=== PATIENT | female | born 1985 | race African-American/Black ===

== ENCOUNTER → 2019-07-16 | Day surgery (SDC) | payer OTHER | LOC: JPSTO 13:27 | DX: N87.1 Moderate cervical dysplasia (principal) ==

== ENCOUNTER 2019-07-23 05:12 | Day surgery (SDC) | payer OTHER ==
[2019-07-16 14:35] VITALS: BMI 42.0
[2019-07-23] MEDS ORDERED: LIDOCAINE HCL/PF 2% SDV 5ML VIAL ONE ×2 (09:00→10:13)
[2019-07-23] MEDS ORDERED: PROPOFOL 20 ML ONE (09:00)
[2019-07-23] MEDS ORDERED: MIDAZOLAM HCL 2 MG/2 ML SINGLE DOSE VIAL ONE ×2 (09:00→10:12)
--- NOTE | 2019-07-23 09:19 | HP ---
History & Physical Update - History History: No Change (HGSIL, IUD in place) - Physical Physical: No Change - Assessment Assessment: No Change - Plan Plan: No Change (LEEP, possible removal of IUD)
[2019-07-23] MEDS ORDERED: KETOROLAC TROMETHAMINE 30 MG/1 ML VIAL ONE (10:05)
[2019-07-23] MEDS ORDERED: SUCCINYLCHOLINE CHLORIDE 200 MG/10 ML SYRINGE ONE (10:14)
--- NOTE | 2019-07-23 10:17 | OP ---
Operative Note - Note: Operative Date: 07/23/19 Pre-Operative Diagnosis: Cervical HGSIL/EMILIA 2 Operation: LEEP, ECC Findings: 1. Pt with known IUD in place. No IUD string was seen at cervical os. An IUD hook was used to retrieve the string. 2. Colposcopy did not show dysplasia. Lugol's solution was used. Post-Operative Diagnosis: Same as Pre-op Surgeon: Narendra Johnson Anesthesiologist/END FINDER FORMING DEPARTMENT: Gregory Crespo Anesthesia: General Specimens Removed: LEEP (fragments from 4 quadrants), ECC Estimated Blood Loss (mls): 2 Blood Volume Replaced (mls): 0 Fluid Volume Replaced (mls): 500 Operative Report Dictated: Yes
[2019-07-23] MEDS ORDERED: ONDANSETRON 4 MG/2 ML VIAL IVPUSH PRN (11:12)
[2019-07-23] MEDS ORDERED: oxyCODONE HCL 5 MG TABLET PO PRN ×2 (11:12)
[2019-07-23] MEDS ORDERED: LACTATED RINGERS SOLUTION 1,000 ML IV SCH (11:15)
[2019-07-23 12:18] VITALS: BP 111/74; PULSE 84; TEMP 98.4
--- NOTE | 2019-07-23 12:55 | OP ---
DATE OF OPERATION: 07/23/2019 PREOPERATIVE DIAGNOSIS: Cervical high-grade squamous intraepithelial lesion, cervical intraepithelial neoplasia 2. POSTOPERATIVE DIAGNOSIS: Cervical high-grade squamous intraepithelial lesion, cervical intraepithelial neoplasia 2. PROCEDURES: Loop electrocautery excision procedure and endocervical curettage. SURGEON: Narendra Johnson MD CMO & PRESIDENT: None. ANESTHESIOLOGIST: Gregory Crespo MD ANESTHESIA: General. COMPLICATIONS: None. INTRAVENOUS FLUIDS: 500 mL. ESTIMATED BLOOD LOSS: 2 mL PATHOLOGY: LEEP with 4 fragments originating from 4 quadrants of the cervix and endocervical curettage. FINDINGS: Examination under anesthesia showed a normal vagina and cervix. The cervix was noted to have a small, nulliparous cervical os. There was no IUD string noted. The colposcopy was performed using acetic acid and Lugol solution. No dysplasia was noted. The attempt to retrieve the IUD string was successful, and the string was retrieved from the endocervical canal prior to the beginning of the procedure. LEEP was performed in 4 quadrants of the cervix without complication and with good hemostasis. DESCRIPTION OF PROCEDURE: The patient was met preoperatively. Risks, benefits, and alternatives of surgery were discussed. We also discussed that the patient has a known IUD in place, and I explained that if the IUD string was cut during the surgery, and attempt will be made to remove the IUD. The patient agreed, however. She expressed her preference to try and preserve the IUD in situ as much as possible with the understanding that if the IUD string is cut the IUD should be removed to avoid a future hysteroscopy to remove the device. The risks of surgery were also reviewed including, but not limited to, infection, bleeding, scarring, cervical stenosis, amenorrhea, infertility, future reproductive risks such as labor and delivery, cervical incompetence, etc. The patient verbalized her understanding. We reviewed the consent form. The consent form was signed. The patient requested to proceed with the surgery. The patient was brought to the OR with the IV running. She was placed on the surgical table in the supine position. The general anesthesia was achieved without difficulty. The patient was then placed in a dorsal lithotomy position using adjustable Kamari stirrups. The patient was prepped and draped in the usual sterile fashion. A time-out procedure was conducted per standard protocol. A sterile coated speculum was then introduced inside the vagina. The colposcopy was performed using acetic acid solution as well as Lugol. There was no sign of dysplasia noted. The vaginal canal and vagina fornices were normal. The cervix was normal. There was no IUD string noted at the cervical os or within the distal cervical canal. At that point, the decision was made to attempt and retrieve the IUD string because it was unclear if the IUD string folded deeper within the cervical canal and would be accidentally cut due to uncertainty of the string position. An IUD hook was then used to successful retrieve the IUD string. Once the IUD string was retrieved, a LEEP procedure was done in a very careful fashion to avoid cutting the IUD string. The decision was made to perform a LEEP in 4 quadrants to avoid cutting the string. This was performed successfully. All segments were removed and sent to Pathology for evaluation. An endocervical curettage was also performed, and the tissue was also sent to Pathology. The base of the LEEP was then cauterized using the ball cautery. Good hemostasis was achieved. A Monsel solution was then used to soak the LEEP base for additional hemostasis. The IUD string was checked and appeared to be intact. Once again, good hemostasis was confirmed. The sponge, lap, and instrument counts were correct. All of the instruments were removed from the patient. The patient was returned to supine position and transferred to recovery room in stable condition and awake. Hollis [id number]
--- NOTE | 2019-07-27 17:27 | PATH ---
Surgical Pathology Report Patient Name: MAGUE QUINTANA [facility]. Rec. #: [id number] /Age/Gender: 1985 (Age: 34) / F Account: [id number] Location: [facility] SURGICAL Taken: 07/23/2019 Received: 07/23/2019 Reported: 07/27/2019 Physicians: Narendra Johnson M.D. Specimen(s) Received A: LEEP B: ENDOCERVICAL CURETTINGS Clinical History EMILIA 2 Final Diagnosis A. CERVICAL LEEP: EMILIA 2 (CERVICAL INTRAEPITHELIAL NEOPLASIA GRADE 2). EMILIA 1 ALSO PRESENT. Comment: EMILIA 2 present in detached squamous fragments. The resection margin cannot be precisely assessed for high grade dysplasia. Immunohistochemistry stains (block A2 and A4) performed at [place], [place] ([id number]) and interpreted at [facility] slides P16 and Ki67 confirmed high grade dysplasia. Positive and negative controls (internal if applicable) show appropriate results. B. ENDOCERVICAL CURETTINGS: ENDOCERVICAL TISSUE WITH NO DIAGNOSTIC ABNORMALITIES. Electronically Signed Jaylin Jiménez M.D. Gross Description A. Received in formalin, labeled "leep" are 4 portions of mucosal tissue ranging from 0.7cm to 1.0cm in greatest dimension. The specimen is not oriented. The resection margin is inked blue. The specimen is serially sectioned and entirely submitted in 4 cassettes (each portion in one cassette) B. Received in formalin, labeled "endocervical curettings" are multiple irregular tolentino soft tissue measuring 0.5 x 0.5 x 0.1 cm in aggregate. The specimens are submitted in toto in one cassette. __ KWS/07/23/2019 abimbola/07/23/2019
== END 2019-07-23 13:10 | disposition home or self-care (01) ==
LOC: JASU-SURG 05:12
PROVIDERS: ATTEND Obstetrics & Gynecology
PROC: 0UBC7ZX Excision of Cervix, Via Natural or Artificial Opening, Diagnostic (ICD-10-PCS; principal; 2019-07-23 09:00)
DX: R87.613 High grade squamous intraepithelial lesion on cytologic smear of cervix (HGSIL) (principal)
CPT/HCPCS: 36415; 84703; 86850; 86900; 86901; 88305-TC; 88307-TC; 94760

== ENCOUNTER 2024-04-20 12:05 | Inpatient (IN) | payer OTHER ==
[2024-04-20] MEDS: ELECTROLYTE-148 SOLN 1,000 ML IV SCH (12:30)
[2024-04-20] MEDS: CITRIC ACID/SODIUM CITRATE 30 ML UNIT-DOSE CUP PO ONE (13:30)
[2024-04-20 13:47] VITALS: BMI 42.0
[2024-04-20] MEDS ORDERED: OXYTOCIN 20 UNITS in 0.9% NS 20 UNIT/1,000 ML INFUS.BAG IV ONE ×2 (17:24→23:25)
[2024-04-20] MEDS ORDERED: BENZOCAINE 28 GM HEMORRHOIDAL OINTMENT TP PRN (17:27)
[2024-04-20] MEDS ORDERED: WITCH HAZEL 50% (TUCKS) 40 PAD/JAR PAD TP PRN (17:27)
[2024-04-20] MEDS ORDERED: BENZOCAINE 20% 57 GM BOTTLE TP PRN (17:27)
[2024-04-20] MEDS: OXYTOCIN 20 UNITS in 0.9% NS 20 UNIT/1,000 ML INFUS.BAG IV SCH (17:45)
[2024-04-20 17:58] LABS: CORD BASE EXCESS -2.6 mmol/L (0-2); CORD HCO3 24.8 mmHg (20-29); CORD PCO2 54.6 mmHg (30-78); CORD pH 7.275 (7.14-7.44)
[2024-04-20 18:00] LABS: CORD BASE EXCESS -2.2 mmol/L (0-2); CORD HCO3 24.5 mmHg (20-29); CORD PCO2 49.3 mmHg (30-78); CORD pH 7.315 (7.14-7.44)
[2024-04-20] MEDS ORDERED: IBUPROFEN 800 MG/8 ML IJ IVPB ONE (18:43)
[2024-04-20] MEDS: IBUPROFEN 800 MG/8 ML IJ IVPB PRN (18:50)
[2024-04-20] MEDS ORDERED: DEXTROSE 5%-WATER - 50 ML IVPB ONE (19:19)
[2024-04-20] MEDS ORDERED: ceFAZolin SODIUM 1 GM VIAL ONE (19:20)
[2024-04-20] MEDS: METHYLERGONOVINE MALEATE 0.2 MG/1 ML AMP IM PRN (19:35)
[2024-04-20 21:30] LABS: HEMATOCRIT 26.3 % (32.4-45.2); HEMOGLOBIN 8.8 GM/dL (10.7-15.3); MCH 27.6 pg (25.7-33.7); MCHC 33.4 g/dl (32.0-36.0); MEAN CELL VOLUME 82.6 fl (80-96); MEAN PLT VOLUME 8.3 fl (7.5-11.1); PLATELET COUNT 275 10^3/uL (134-434); RBC 3.18 M/mm3 (3.60-5.2); RDW 19.4 % (11.6-15.6)
[2024-04-20 22:26] LABS: ANISOCYTOSIS 2+; OVALOCYTE 1+; TEAR DROP CELLS 1+
[2024-04-20 22:31] LABS: PLATELET ESTIMATE ADEQUATE
[2024-04-21] MEDS: CEFAZOLIN 1 GM in DEXTROSE 5%-WATER - 50 ML IVPB SCH ×2 (01:28→01:37)
[2024-04-21] MEDS ORDERED: oxyCODONE HCL 5 MG TABLET PO PRN (05:27)
[2024-04-21] MEDS: SIMETHICONE 80 MG TAB.CHEW (FP) PO PRN (06:15)
[2024-04-21 07:03] LABS: BASO % 0.1 % (0-2.0); HEMATOCRIT 18.9 % (32.4-45.2); LYMPH % 7.3 % (8-40); MCH 27.7 pg (25.7-33.7); MCHC 33.7 g/dl (32.0-36.0); MEAN CELL VOLUME 82.3 fl (80-96); MEAN PLT VOLUME 7.8 fl (7.5-11.1); MONO % 8.8 % (3.8-10.2); NEUT % 83.8 % (42.8-82.8); PLATELET COUNT 196 10^3/uL (134-434); RDW 18.9 % (11.6-15.6); WHITE BLOOD COUNT 15.1 K/mm3 (4.0-10.0)
[2024-04-21 08:19] LABS: HEMOGLOBIN 6.4 GM/dL (10.7-15.3)
[2024-04-21] MEDS: PRENATAL VITAMINS W/ FOLIC ACID TABLET (FP) PO SCH (09:24)
[2024-04-21] MEDS: IBUPROFEN 600 MG TABLET (FP) PO PRN (13:20)
[2024-04-21 19:42] LABS: HEMATOCRIT 25.5 % (32.4-45.2); HEMOGLOBIN 8.6 GM/dL (10.7-15.3); MCH 27.8 pg (25.7-33.7); MEAN CELL VOLUME 81.8 fl (80-96); PLATELET COUNT 217 10^3/uL (134-434); RBC 3.11 M/mm3 (3.60-5.2); RDW 17.7 % (11.6-15.6); WHITE BLOOD COUNT 13.4 K/mm3 (4.0-10.0)
[2024-04-21] MEDS: oxyCODONE HCL 5 MG TABLET PO PRN (20:47)
[2024-04-21] MEDS: SENNOSIDES/DOCUSATE COMBO (SENNA PLUS) TABLET (UD) PO PRN (20:47)
[2024-04-21] MEDS: KETOROLAC TROMETHAMINE 30 MG/1 ML VIAL IVPUSH PRN (23:15)
[2024-04-22] MEDS: ACETAMINOPHEN 325 MG TABLET (FP) PO PRN (08:20)
[2024-04-22 09:19] LABS: BASO % 0.1 % (0-2.0); EOS % 0.1 % (0-4.5); HEMATOCRIT 21.5 % (32.4-45.2); HEMOGLOBIN 7.5 GM/dL (10.7-15.3); LYMPH % 15.3 % (8-40); MCH 28.4 pg (25.7-33.7); MCHC 34.8 g/dl (32.0-36.0); MEAN CELL VOLUME 81.6 fl (80-96); MONO % 11.2 % (3.8-10.2); NEUT % 73.3 % (42.8-82.8); PLATELET COUNT 184 10^3/uL (134-434); RBC 2.64 M/mm3 (3.60-5.2); RDW 18.1 % (11.6-15.6); WHITE BLOOD COUNT 11.2 K/mm3 (4.0-10.0)
[2024-04-22 21:45] LABS: HEMATOCRIT 23.4 % (32.4-45.2); HEMOGLOBIN 8.1 GM/dL (10.7-15.3); MCH 28.7 pg (25.7-33.7); MCHC 34.8 g/dl (32.0-36.0); MEAN CELL VOLUME 82.5 fl (80-96); MEAN PLT VOLUME 7.6 fl (7.5-11.1); PLATELET COUNT 191 10^3/uL (134-434); RBC 2.84 M/mm3 (3.60-5.2); RDW 17.1 % (11.6-15.6); WHITE BLOOD COUNT 11.2 K/mm3 (4.0-10.0)
[2024-04-22 22:34] LABS: ANISOCYTOSIS 1+; MACROCYTOSIS 1+; OVALOCYTE 1+; TEAR DROP CELLS 1+
[2024-04-22 22:38] LABS: PLATELET ESTIMATE ADEQUATE
[2024-04-23 08:40] LABS: HEMATOCRIT 21.9 % (32.4-45.2); HEMOGLOBIN 7.5 GM/dL (10.7-15.3); MCH 28.5 pg (25.7-33.7); MCHC 34.4 g/dl (32.0-36.0); MEAN CELL VOLUME 82.7 fl (80-96); MEAN PLT VOLUME 8.1 fl (7.5-11.1); PLATELET COUNT 164 10^3/uL (134-434); RBC 2.65 M/mm3 (3.60-5.2); RDW 17.5 % (11.6-15.6); WHITE BLOOD COUNT 7.7 K/mm3 (4.0-10.0)
[2024-04-23 09:38] LABS: ANISOCYTOSIS 0; HELMET CELLS 0; HOWELL-JOLLY BODIES 0; MACROCYTOSIS 0; OVALOCYTE 0; ROULEAU 0; SICKELED CELLS 0; TARGET CELLS 0; TEAR DROP CELLS 0; TOXIC GRANULATION 0
[2024-04-23] MEDS ORDERED: TRANEXAMIC ACID 1000 MG/10 ML VIAL IVPUSH ONE (11:39)
[2024-04-23] MEDS ORDERED: SODIUM CHLORIDE 500 ML IV STA (11:52)
[2024-04-23] MEDS: TRANEXAMIC ACID 1000 MG/10 ML VIAL IVPB ONE (12:50)
[2024-04-23] MEDS: BISACODYL 10 MG SUPP.RECT RC PRN (21:10)
[2024-04-24 08:01] LABS: HEMATOCRIT 28.5 % (32.4-45.2); HEMOGLOBIN 10.2 GM/dL (10.7-15.3); MCH 29.9 pg (25.7-33.7); MCHC 35.9 g/dl (32.0-36.0); MEAN CELL VOLUME 83.2 fl (80-96); MEAN PLT VOLUME 7.9 fl (7.5-11.1); PLATELET COUNT 189 10^3/uL (134-434); RBC 3.42 M/mm3 (3.60-5.2); RDW 16.6 % (11.6-15.6); WHITE BLOOD COUNT 6.9 K/mm3 (4.0-10.0)
[2024-04-24 08:13] LABS: POTASSIUM 3.7 mmol/L (3.5-5.1)
[2024-04-24 08:15] LABS: CALCIUM 8.4 mg/dL (8.5-10.1)
[2024-04-24 08:19] LABS: CREATININE 0.7 mg/dL (0.55-1.3)
[2024-04-24 11:41] VITALS: BP 116/69; PULSE 91; RESP 16; TEMP 97.8
== END 2024-04-24 14:10 | disposition home or self-care (01) | DRG 787 ==
LOC: JLDR 12:05 → J3W 04-21 01:31
PROVIDERS: ADMIT Obstetrics & Gynecology; ATTEND Obstetrics & Gynecology
PROC: 10D00Z1 Extraction of Products of Conception, Low, Open Approach (ICD-10-PCS; principal; 2024-04-20)
PROC: 0W3R7ZZ Control Bleeding in Genitourinary Tract, Via Natural or Artificial Opening (ICD-10-PCS; 2024-04-20)
PROC: 10D17Z9 Manual Extraction of Products of Conception, Retained, Via Natural or Artificial Opening (ICD-10-PCS; 2024-04-20)
PROC: 30233N1 Transfusion of Nonautologous Red Blood Cells into Peripheral Vein, Percutaneous Approach (ICD-10-PCS; 2024-04-22)
DX: O34.211 Maternal care for low transverse scar from previous cesarean delivery (principal); O72.1 Other immediate postpartum hemorrhage; O43.213 Placenta accreta, third trimester; O90.81 Anemia of the puerperium; O48.0 Post-term pregnancy; O36.63X0 Maternal care for excessive fetal growth, third trimester, not applicable or unspecified; Z3A.40 40 weeks gestation of pregnancy; Z37.0 Single live birth
CPT/HCPCS: 36415; 36430; 36600; 74178-TC; 80048; 82803; 85025; 85027; 86803; 86850; 86900; 86901; 86922; 88307-TC; P9038; P9058; Q9967

== ENCOUNTER 2024-05-12 16:20 | Emergency (ER) | payer OTHER ==
[2024-05-12 16:28] VITALS: TEMP 99; BMI 32.9
[2024-05-12] MEDS ORDERED: MAGNESIUM SULFATE IN WATER 2 GM/50 ML IVPB IVPB ONE (17:04)
[2024-05-12] MEDS ORDERED: METOCLOPRAMIDE HCL INJECTION 10 MG/2 ML VIAL ONE (17:04)
[2024-05-12] MEDS ORDERED: ACETAMINOPHEN INJECTION 100 ML IVPB ONE (17:04)
[2024-05-12] MEDS: ACETAMINOPHEN 1000 MG/100 ML BAG IVPB ONE (17:12)
[2024-05-12] MEDS: MAGNESIUM SULFATE IN WATER 2 GM/50 ML IVPB IVPB ONE (17:20)
[2024-05-12 17:22] LABS: INR 1.05 (0.83-1.09); PROTHROMBIN TIME (PATIENT) 11.8 SEC (9.7-13.0)
[2024-05-12 17:25] LABS: ACTIVATED PTT 32.3 SECONDS (25.2-36.5)
[2024-05-12 17:28] LABS: BASO % 0.3 % (0-2.0); EOS % 0.5 % (0-4.5); HEMATOCRIT 27.6 % (32.4-45.2); HEMOGLOBIN 9.4 GM/dL (10.7-15.3); MCH 28.4 pg (25.7-33.7); MEAN CELL VOLUME 83.5 fl (80-96); MEAN PLT VOLUME 8.2 fl (7.5-11.1); MONO % 17.5 % (3.8-10.2); NEUT % 51.7 % (42.8-82.8); PLATELET COUNT 178 10^3/uL (134-434); RDW 17.4 % (11.6-15.6); WHITE BLOOD COUNT 3.2 K/mm3 (4.0-10.0)
[2024-05-12 17:30] LABS: POTASSIUM 3.4 mmol/L (3.5-5.1)
[2024-05-12 17:32] LABS: CALCIUM 8.3 mg/dL (8.5-10.1)
[2024-05-12 17:33] LABS: ALBUMIN 3.4 g/dl (3.4-5.0); BLOOD UREA NITROGEN 14.8 mg/dL (7-18); MAGNESIUM 1.8 mg/dL (1.8-2.4)
[2024-05-12 17:36] LABS: CREATININE 0.8 mg/dL (0.55-1.3)
[2024-05-12 17:37] LABS: BILIRUBIN,TOTAL 2.4 mg/dL (0.2-1); TOT PROT 6.6 g/dl (6.4-8.2)
[2024-05-12] MEDS: METOCLOPRAMIDE HCL INJECTION 10 MG/2 ML VIAL IVPB ONE (17:50)
[2024-05-12] MEDS: LACTATED RINGERS SOLUTION 1000 ML INFUS.BAG IV ONE (18:10)
[2024-05-12 18:38] LABS: POTASSIUM 3.4 mmol/L (3.5-5.1)
[2024-05-12 18:40] LABS: CALCIUM 8.2 mg/dL (8.5-10.1)
[2024-05-12 18:41] LABS: ALBUMIN 3.3 g/dl (3.4-5.0); BLOOD UREA NITROGEN 15.7 mg/dL (7-18); MAGNESIUM 2.6 mg/dL (1.8-2.4)
[2024-05-12 18:44] LABS: CREATININE 0.8 mg/dL (0.55-1.3)
[2024-05-12 18:46] LABS: TOT PROT 6.5 g/dl (6.4-8.2)
[2024-05-12 18:51] LABS: BILIRUBIN,TOTAL 2.4 mg/dL (0.2-1)
[2024-05-12 19:23] LABS: EPI CELLS 31 /uL (0-25.1); HYALINE CASTS 0 /uL (0-3.1); PH,URINE 6.5 (5.0-8.0); URINE APPEARANCE CLOUDY; URINE BACTERIA 10 /uL (0-1359); URINE BILIRUBIN NEGATIVE (NEGATIVE); URINE COLOR DK YELLOW; URINE GLUCOSE (UA) NEGATIVE (NEGATIVE); URINE KETONE NEGATIVE (NEGATIVE); URINE LEUK ESTERASE TRACE (NEGATIVE); URINE NITRITE NEGATIVE (NEGATIVE); URINE PROTEIN 2+ (NEGATIVE); URINE WBC 85 /uL (0-25.8)
[2024-05-12] MEDS ORDERED: POTASSIUM CHLORIDE TABS 20 MEQ TABLET.ER (FP) PO ONE (19:42)
[2024-05-12] MEDS: POTASSIUM CHLORIDE ORAL LIQUID 20 MEQ/15 ML PO ONE (19:45)
[2024-05-12 19:56] LABS: URINE RBC 79.7 /uL (0-23.9)
[2024-05-12 21:43] VITALS: PULSE 81; RESP 16
[2024-05-12] MEDS ORDERED: KETOROLAC TROMETHAMINE 15 MG/ML VIAL ONE (21:45)
[2024-05-12] MEDS ORDERED: LABETALOL HCL 200 MG TABLET (FP) ONE (21:45)
[2024-05-12] MEDS: KETOROLAC TROMETHAMINE 15 MG/ML VIAL IVPUSH ONE (21:49)
[2024-05-12] MEDS: LABETALOL HCL 200 MG TABLET (FP) PO ONE (21:49)
[2024-05-12 22:32] VITALS: BP 121/91
== END 2024-05-12 22:37 | disposition home or self-care (01) ==
LOC: JER 16:20
PROC: 3E033GC Introduction of Other Therapeutic Substance into Peripheral Vein, Percutaneous Approach (ICD-10-PCS; principal; 2024-05-12)
PROC: 3E033GC Introduction of Other Therapeutic Substance into Peripheral Vein, Percutaneous Approach (ICD-10-PCS; 2024-05-12)
PROC: 3E033NZ Introduction of Analgesics, Hypnotics, Sedatives into Peripheral Vein, Percutaneous Approach (ICD-10-PCS; 2024-05-12)
PROC: 3E0333Z Introduction of Anti-inflammatory into Peripheral Vein, Percutaneous Approach (ICD-10-PCS; 2024-05-12)
DX: O14.05 Mild to moderate pre-eclampsia, complicating the puerperium (principal); O16.5 Unspecified maternal hypertension, complicating the puerperium; R51.9 Headache, unspecified; H53.149 Visual discomfort, unspecified; R11.0 Nausea
CPT/HCPCS: 36415; 70450-TC; 71045-TC-FY; 76705-TC; 80053; 81003; 82570; 83735; 84156; 84703; 85025; 85610; 85730; 87086; 93005; 93010; 99285-25; J0131

== ENCOUNTER 2024-05-17 09:47 | Emergency (ER) | payer OTHER ==
[2024-05-17 10:08] VITALS: BP 123/74; PULSE 94; RESP 18; TEMP 98.5; BMI 38.0
[2024-05-17] MEDS: SODIUM CHLORIDE 0.9% 500 ML INFUS.BAG IV ONE (10:25)
[2024-05-17] MEDS: MAG HYDROX/AL HYDROX/SIMETH 30 ML UNIT-DOSE CUP PO ONE (10:25)
[2024-05-17] MEDS: FAMOTIDINE 20 MG TABLET PO ONE (10:25)
[2024-05-17] MEDS ORDERED: KETOROLAC TROMETHAMINE 30 MG/1 ML VIAL ONE (10:39)
[2024-05-17] MEDS ORDERED: FAMOTIDINE 20 MG TABLET ONE (10:40)
[2024-05-17] MEDS ORDERED: MAG HYDROX/AL HYDROX/SIMETH 30 ML UNIT-DOSE CUP ONE (10:40)
[2024-05-17 11:04] LABS: URINE APPEARANCE Clear; URINE BILIRUBIN Negative (NEGATIVE); URINE COLOR Yellow; URINE GLUCOSE (UA) Negative (NEGATIVE); URINE KETONE Negative (NEGATIVE); URINE LEUK ESTERASE Negative (NEGATIVE); URINE NITRITE Negative (NEGATIVE); URINE PROTEIN Negative (NEGATIVE)
[2024-05-17] MEDS: KETOROLAC TROMETHAMINE 30 MG/1 ML VIAL IVPUSH ONE (11:04)
[2024-05-17 11:18] LABS: BASO % 0.2 % (0-2.0); EOS % 0.5 % (0-4.5); HEMATOCRIT 27.7 % (32.4-45.2); LYMPH % 13.7 % (8-40); MCH 27.9 pg (25.7-33.7); MCHC 32.4 g/dl (32.0-36.0); MEAN CELL VOLUME 86.2 fl (80-96); MEAN PLT VOLUME 7.9 fl (7.5-11.1); MONO % 11.3 % (3.8-10.2); NEUT % 74.3 % (42.8-82.8); PLATELET COUNT 225 10^3/uL (134-434); RBC 3.21 M/mm3 (3.60-5.2); RDW 17.8 % (11.6-15.6); WHITE BLOOD COUNT 5.8 K/mm3 (4.0-10.0)
[2024-05-17 11:33] LABS: POTASSIUM 4.2 mmol/L (3.5-5.1)
[2024-05-17 11:35] LABS: CALCIUM 9.2 mg/dL (8.5-10.1)
[2024-05-17 11:36] LABS: ALBUMIN 3.8 g/dl (3.4-5.0); BLOOD UREA NITROGEN 9.6 mg/dL (7-18)
[2024-05-17 11:39] LABS: CREATININE 0.9 mg/dL (0.55-1.3)
[2024-05-17 11:40] LABS: TOT PROT 7.4 g/dl (6.4-8.2)
[2024-05-17 11:41] LABS: BILIRUBIN,TOTAL 0.9 mg/dL (0.2-1)
== END 2024-05-17 12:16 | disposition home or self-care (01) ==
LOC: JER 09:47
PROC: 3E0333Z Introduction of Anti-inflammatory into Peripheral Vein, Percutaneous Approach (ICD-10-PCS; principal; 2024-05-17)
DX: K80.70 Calculus of gallbladder and bile duct without cholecystitis without obstruction (principal); R10.13 Epigastric pain; R11.2 Nausea with vomiting, unspecified
CPT/HCPCS: 36415; 80053; 81003; 81015; 83690; 85025; 87086; 93005; 93010; 99284-25